=== PATIENT | female | born 1970 | race Caucasian/White ===

== ENCOUNTER 2022-09-15 16:34 | Emergency (ER) | payer BC ==
[2022-09-15] MEDS ORDERED: Magnesium 2 GM/50 ML BAG (IN WATER) ONE (17:35)
[2022-09-15] MEDS ORDERED: Thiamine HCl 200 MG/2 ML VIAL ONE (17:35)
[2022-09-15] MEDS ORDERED: Folic Acid 1 MG TAB ONE (17:35)
[2022-09-15 17:36] LABS: #Basophils 0.1 10x3/uL (0.0-0.2); #Monocytes 0.2 10x3/uL (0.0-1.1); #Neutrophils 1.8 10x3/uL (1.5-8.4); %Basophils 1.8 % (0.0-2.0); %Eosinophils 0.9 % (0.0-6.0); %Lymphocytes 52.7 % (18.0-47.0); %Monocytes 4.7 % (0.0-10.0); %Neutrophils 39.9 % (40.0-75.0); Hemoglobin 12.2 g/dL (12.0-15.5); Mean Corpuscular HGB CONC 35.7 g/dL (32.0-36.0); Mean Corpuscular Hemoglobin 34.4 pg (27.0-33.0); Mean Corpuscular Volume 96.3 fl (81.6-98.3); Mean Platelet Volume 9.5 fl (7.4-10.4); Platelet Count 296 10x3/uL (150-450); RBC Distribution Width 15.5 % (11.5-14.5); Red Blood Cell (RBC) Count 3.55 10x6/uL (3.90-5.03); White Blood Cell (WBC) Count 4.5 10x3/uL (3.5-10.5)
[2022-09-15 17:52] LABS: Acetaminophen Less than 10.0 mcg/mL (10.0-30.0); Alcohol 325 mg/dL (Less than 10); Anion Gap 22 mmol/L (10-20); BUN (Urea Nitrogen) 8 mg/dL (7.0-18.7); Calc. Creatinine Clearance 0 mL/min (70-130); Calcium 9.4 mg/dL (7.8-10.44); Carbon Dioxide 23 mmol/L (22-29); Chloride 101 mmol/L (98-107); Estimated GFR 88; Glucose 94 mg/dL (70-105); Magnesium 2.2 mg/dL (1.6-2.6); Potassium 4.9 mmol/L (3.5-5.1); Salicylate Less than 8.0 mg/dL (15.0-30.0); Sodium 141 mmol/L (136-145)
[2022-09-15 18:04] LABS: Eosinophils 2 % (0-10); Lymphocytes 46 % (21-51); Monocytes 3 % (0-10); Neutrophil 44 % (42-75); Reactive Lymphocytes 4 % (0-10)
[2022-09-15 18:05] LABS: Platelet Morphology Comment Appears Adequate
[2022-09-15 18:06] LABS: Anisocytosis SLIGHT = 6-15 cells (100X) (0-5/hpf); Macrocytosis SLIGHT = 6-15 cells (100X) (0-5/hpf); Microcytosis SLIGHT = 6-15 cells (100X) (0-5/hpf); Stomatocytes SLIGHT = 2-5 cells (100X) (0-1/hpf)
[2022-09-15] MEDS ORDERED: chlordiazePOXIDE HCl 5 MG CAP ONE (20:56)
== END 2022-09-16 04:13 | disposition home or self-care (01) ==
LOC: CSHERS 16:34
DX: F10.129 Alcohol abuse with intoxication, unspecified (principal)
CPT/HCPCS: 80048; 80307; 83735; 85025; 96365; 96366; 96375; J3411; J3475